=== PATIENT | female | born 1980 | race Caucasian/White ===

== ENCOUNTER → 2017-06-26 | Day surgery (SDC) | payer OTHER ==
--- NOTE | 2017-06-25 18:51 | History & Physical Pre-Op ---
General Information and HPI History of Present Illness: 36 yo with endometrial polyp and irregular menses presents for D&C hysteroscopy Allergies/Medications Allergies: Coded Allergies: No Known Allergies (06/25/17) Home Med list Cholecalciferol (Vitamin D3) (Vitamin D) (Unknown Strength) CAPSULE (Unknown Dose) PO DAILY SUPPLEMENT (Reported) Past History Medical History Neurological: HEADACHES EENT: NONE Cardiovascular: NONE Respiratory: NONE Gastrointestinal: NONE Hepatic: NONE Renal: NONE Musculoskeletal: NONE Psychiatric: NONE Endocrine: NONE Blood Disorders: NONE Cancer(s): NONE GENERAL ACCOUNTING CLERK/Reproductive: NONE Tetanus Vaccine: 08/22/12 Surgical History Pertinent Surgical History: non-contributory Review of Systems Review of Systems Constitutional: Reports: no symptoms. EENTM: Reports: no symptoms. Cardiovascular: Reports: no symptoms. Respiratory: Reports: no symptoms. GI: Reports: no symptoms. Genitourinary: Reports: no symptoms. Musculoskeletal: Reports: no symptoms. Skin: Reports: no symptoms. Neurological/Psychological: Reports: no symptoms. Hematologic/Endocrine: Reports: no symptoms. Immunologic/Allergic: Reports: no symptoms. All Other Systems: Reviewed and Negative Exam & Diagnostic Data Last 24 Hrs of Vital Signs/I&O Intake & Output 06/25 1600 06/25 0800 06/25 0000 Intake Total Output Total Balance Patient 120 lb Weight Physical Exam: HEENT: NCAT Chest: CTA CV: nl S1S2 pelvic: deferred Ext: no c/c/e Assessment/Plan Assessment/Plan: endo polyp D&C hysteroscopy As Ranked By This Provider Problem List: 1. Endometrial polyp
[~2017-06-26] VITALS: Ht 162.6 cm; Wt 54.4 kg
[~2017-06-26] MED LIST: FLEXERIL10 MG PO; PROGESTERONE100 M2 PO; TORADOL10 MG PO; VITAMIN D2000 UNIT PO
--- NOTE | 2017-06-27 10:16 | Operative Report ---
Operative/Inv Procedure Report Surgery Date: 06/26/17 Name of Procedure: D&C hysteroscopy polypectomy Pre-Operative Diagnosis: Endometrial polyp Post-Operative Diagnosis: Same Estimated Blood Loss: scant Surgeon/Director [place]: Sameer Akers MD Anesthesia: moderate sedation Operative/Procedure Note Note: Patient is brought to the operating room placed on the OR table in the dorsal supine position. She was given adequate anesthesia and repositioned into modified dorsal lithotomy. She was prepped and draped in usual sterile fashion. A weighted speculum inserted into the vagina with help of a [place] retractor single-tooth tenaculum was attached to the anterior lip of the cervix. The cervix was injected with 1% lidocaine with epinephrine to have cc in each quadrant. An endocervical curettage was performed. The uterus is sounded to 8 cm. The cervix was serially dilated to accommodate the hysteroscope hysteroscope was placed into the uterus and the saline was activated. A small polyp was noted on the left posterior wall. The Tanya sure instrument was introduced and the polyp was removed the isthmus was then removed and hemostasis was verified. The vaginal isthmus removed and the patient was awakened and sent to recovery in good condition. All needle, sponge, and instrument Counts were correct at the end of the procedure 2.
== END ==
LOC: STS 02:14
DX: N84.0 Polyp of corpus uteri (principal); N72 Inflammatory disease of cervix uteri; N92.6 Irregular menstruation, unspecified
CPT/HCPCS: 81025; 88305; J2250